=== PATIENT | male | born 1980 | race African-American/Black ===

== ENCOUNTER 2017-11-22 15:39 | Emergency (ER) | payer OTHER, BC ==
[2017-11-22 15:57] VITALS: BP 144/99; PULSE 68; TEMP 98.4; BMI 32.5
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
== END 2017-11-22 17:23 | disposition home or self-care (01) ==
LOC: JERFT 15:39
DX: S29.012A Strain of muscle and tendon of back wall of thorax, initial encounter (principal); V73.6XXA Passenger on bus injured in collision with car, pick-up truck or van in traffic accident, initial encounter; Y92.410 Unspecified street and highway as the place of occurrence of the external cause
CPT/HCPCS: 72070-TC-FY; 99281-25